=== PATIENT | female | born 1970 | race Caucasian/White ===

== ENCOUNTER 2017-07-11 00:03 | Emergency (ER) | payer OTHER ==
[~2017-07-11] VITALS: Ht 152.4 cm; Wt 73.9 kg
[~2017-07-11 00:03] MED LIST: MUSCLE RELAXER
[2017-07-11 00:06] VITALS: BP 140/72
== END 2017-07-11 01:20 | disposition home or self-care (01) ==
LOC: EME 00:03
DX: S80.02XA Contusion of left knee, initial encounter (principal); W01.0XXA Fall on same level from slipping, tripping and stumbling without subsequent striking against object, initial encounter; Y99.0 Civilian activity done for income or pay; Z88.8 Allergy status to other drugs, medicaments and biological substances
CPT/HCPCS: 73564; 99281; 99283